=== PATIENT | female | born 1975 | race Caucasian/White ===

== ENCOUNTER 2019-02-25 21:51 | Emergency (ER) | payer MEDICAID ==
[~2019-02-25] VITALS: Ht 165.1 cm; Wt 87.0 kg
[~2019-02-25 21:51] MED LIST: [UNRECOGNIZED DRUG - OTHER]; motrin; promethazine
[2019-02-26] MEDS ORDERED: KETOROLAC 60MG/2ML VIAL IM ONE
[2019-02-26 00:25] VITALS: BP 113/76
== END 2019-02-26 00:46 | disposition home or self-care (01) ==
LOC: ER 21:51
DX: S09.8XXA Other specified injuries of head, initial encounter (principal); W18.39XA Other fall on same level, initial encounter; Y93.89 Activity, other specified; Y92.89 Other specified places as the place of occurrence of the external cause; Y99.8 Other external cause status; Z88.2 Allergy status to sulfonamides; Z88.1 Allergy status to other antibiotic agents; Z90.710 Acquired absence of both cervix and uterus
CPT/HCPCS: 96372; 99283; J1885

== ENCOUNTER 2019-12-01 11:24 | Emergency (ER) | payer MEDICAID ==
[~2019-12-01] VITALS: Ht 165.1 cm; Wt 93.0 kg
[2019-12-01] MEDS ORDERED: IBUPROFEN 600MG TABLET PO ONE (13:00)
[2019-12-01] MEDS ORDERED: BACITRACIN ZINC OINT UDPKT TOP ONE (13:00)
[2019-12-01 13:42] VITALS: BP 147/98
== END 2019-12-01 13:44 | disposition home or self-care (01) ==
LOC: ER 11:24
DX: L02.212 Cutaneous abscess of back [any part, except buttock and flank] (principal); Z90.710 Acquired absence of both cervix and uterus; Z88.1 Allergy status to other antibiotic agents; Z88.2 Allergy status to sulfonamides
CPT/HCPCS: 99281

== ENCOUNTER 2022-10-12 00:11 | Emergency (ER) | payer MEDICAID ==
[~2022-10-12] VITALS: Ht 165.1 cm; Wt 110.0 kg
[2022-10-12] MEDS ORDERED: DIPHENHYDRAMINE 25MG CAPSULE PO ONE (01:15)
[2022-10-12] MEDS ORDERED: METOCLOPRAMIDE HCL 10MG TABLET PO ONE (01:15)
[2022-10-12] MEDS ORDERED: ACETAMINOPHEN 325MG TABLET PO ONE (01:15)
[2022-10-12] MEDS ORDERED: ACET-2708 MT (02:06)
[2022-10-12 02:23] VITALS: BP 133/78
== END 2022-10-12 02:24 | disposition home or self-care (01) ==
LOC: ER 00:24
DX: R51.9 Headache, unspecified (principal); Z90.49 Acquired absence of other specified parts of digestive tract; Z88.1 Allergy status to other antibiotic agents; Z88.2 Allergy status to sulfonamides
CPT/HCPCS: 99284; J8597; Q0163

== ENCOUNTER 2022-10-18 18:26 | Emergency (ER) | payer MEDICAID ==
[~2022-10-18] VITALS: Ht 165.1 cm; Wt 113.0 kg
[~2022-10-18 18:26] MED LIST changes: +ACET-2708 MT
[2022-10-18 18:43] VITALS: BP 161/95
[2022-10-18] MEDS ORDERED: OFLO5DRO3 EACHEYE (19:20)
== END 2022-10-18 19:29 | disposition home or self-care (01) ==
LOC: ER 18:49
DX: H10.33 Unspecified acute conjunctivitis, bilateral (principal); Z88.1 Allergy status to other antibiotic agents; Z88.2 Allergy status to sulfonamides; Z90.49 Acquired absence of other specified parts of digestive tract
CPT/HCPCS: 99283

== ENCOUNTER 2023-01-12 22:55 | Emergency (ER) | payer MEDICAID ==
[~2023-01-12] VITALS: Ht 165.1 cm; Wt 109.0 kg
[~2023-01-12 22:55] MED LIST changes: +OFLO5DRO3 EACHEYE
[2023-01-13] MEDS ORDERED: KETOROLAC 60MG/2ML VIAL IM ONE (03:15)
[2023-01-13] MEDS ORDERED: AMOX1TAB16 MT (03:17)
[2023-01-13 04:12] VITALS: BP 125/90
== END 2023-01-13 04:14 | disposition home or self-care (01) ==
LOC: ER 22:55
DX: I88.9 Nonspecific lymphadenitis, unspecified (principal); Z88.2 Allergy status to sulfonamides; R51.9 Headache, unspecified; R50.9 Fever, unspecified
CPT/HCPCS: 99281; J1885

== ENCOUNTER 2023-03-30 13:20 | Emergency (ER) | payer MEDICAID ==
[~2023-03-30] VITALS: Ht 165.1 cm; Wt 110.0 kg
[~2023-03-30 13:20] MED LIST changes: +AMOX1TAB16 MT; +OCUFLX EACHEYE; -OFLO5DRO3 EACHEYE
[2023-03-30 13:21] VITALS: O2SAT 100
[2023-03-30 14:07] LABS: BASOPHILS % 0.6 % (0.0-2.0); EOSINOPHILS % 3.2 % (0.0-5.0); HEMATOCRIT. 36.6 % (36.0-48.0); HEMOGLOBIN. 12.9 g/dL (12.0-16.0); LYMPHOCYTES % 33.3 % (20.0-50.0); MEAN CORPUSCULAR HEMOGLOBIN 30.5 pg (28.0-32.0); MEAN CORPUSCULAR VOLUME 86.4 fL (81.0-99.0); MEAN PLATELET VOLUME 7.3 fl (7.4-10.4); MONOCYTES % 10.1 % (2.0-8.0); NEUTROPHILS % 52.8 % (40.0-76.0); PLATELET 317 x1000/uL (130-400); RED BLOOD CELL COUNT 4.24 mill/uL (4.2-5.4); RED CELL DISTRIBUTION WIDTH 13.2 % (11.6-14.6)
[2023-03-30 14:14] LABS: CHLORIDE 102 mEq/L (98-107)
[2023-03-30] MEDS ORDERED: KETOROLAC 60MG/2ML VIAL IM STA (16:46)
[2023-03-30 17:06] LABS: HCG SCREEN NEGATIVE
[2023-03-30 20:40] VITALS: BP 139/76; PULSE 79; RESP 20; TEMP 98.3
== END 2023-03-30 20:52 | disposition home or self-care (01) ==
LOC: ER 13:20
DX: R10.9 Unspecified abdominal pain (principal)
CPT/HCPCS: 99285; 74176; 80053; 84703; 83690; 85025; 36415; 93005; 96372; J1885